=== PATIENT | female | born 1960 | race Caucasian/White ===

== ENCOUNTER → 2016-04-23 | Outpatient (CLI) | payer OTHER ==
[~2016-04-23] MED LIST: ALDACTONE100 MG PO; ASPIRIN81 M2 PO; CELEXA10 MG PO; CELEXA20 MG PO; CLEOCIN300 MG PO; DIAZEPAM5 MG PO; ENDOCET 5-3251 EACH; FLOVENT 11120 INHALA IH; FLOVENT DISKUS1 DISK IH; HYDROCHLOROTH12.5 M3 PO; KEFLEX250 MG PO; KEFLEX500 MG PO; LACTINEX PACKE1 EACH PO; LANTUS 3 M100 UNITS1 SC; LASIX40 MG PO; LISINOPRIL10 MG PO; LISINOPRIL5 MG PO; LORAZEPAM1 MG PO; METFORMIN HCL500 MG PO; NEXIUM20 MG PO; NITROSTAT0.4 MG SL; NO HOME MEDS; PERCOCET 5/31 TABLET PO; PLAVIX75 MG PO; RANITIDINE HCL75 MG PO; SPIRONOLACTONE100 MG PO; ULTRAM50 MG PO; VALIUM5 MG; VENTOLIN HFA18 GM IH; XANAX1 MG PO
== END | disposition home or self-care (01) ==
LOC: RAD 12:57 → EDSTATUS 13:15
PROC: 0W9G3ZZ Drainage of Peritoneal Cavity, Percutaneous Approach (ICD-10-PCS; principal; 2016-04-23)
DX: R18.8 Other ascites (principal)
CPT/HCPCS: P9047

== ENCOUNTER → 2016-04-26 | Outpatient (CLI) | payer OTHER | END | disposition home or self-care (01) | LOC: RAD 04-24 08:15 → EDSTATUS 08:15 → RAD 08:15 | PROC: 0W9G3ZZ Drainage of Peritoneal Cavity, Percutaneous Approach (ICD-10-PCS; principal; 2016-04-26) | DX: R18.8 Other ascites (principal) | CPT/HCPCS: P9047 ==

== ENCOUNTER → 2016-05-01 | Outpatient (CLI) | payer OTHER | END | disposition home or self-care (01) | LOC: EDSTATUS 04-29 13:15 → RAD 04-29 13:15 | PROC: 0W9G3ZZ Drainage of Peritoneal Cavity, Percutaneous Approach (ICD-10-PCS; principal; 2016-05-01) | DX: R18.8 Other ascites (principal) | CPT/HCPCS: P9047 ==

== ENCOUNTER → 2016-05-06 | Outpatient (CLI) | payer OTHER | END | disposition home or self-care (01) | LOC: RAD 12:55 → EDSTATUS 13:15 → RAD 13:15 | PROC: 0W9G3ZZ Drainage of Peritoneal Cavity, Percutaneous Approach (ICD-10-PCS; principal; 2016-05-06) | DX: R18.8 Other ascites (principal) | CPT/HCPCS: P9047 ==

== ENCOUNTER → 2016-05-13 | Outpatient (CLI) | payer OTHER ==
[~2016-05-13] MED LIST changes: +CYMBALTA60 MG PO; +ENDOCET 10-3251 EACH PO; +RETIN-A45 G1 TP
== END | disposition home or self-care (01) ==
LOC: U 12:32 → RAD 12:32 → EDSTATUS 13:15 → RAD 13:15
DX: Z53.8 Procedure and treatment not carried out for other reasons (principal)

== ENCOUNTER → 2016-05-15 | Outpatient (CLI) | payer OTHER ==
[~2016-05-15] MED LIST changes: -CYMBALTA60 MG PO; -ENDOCET 10-3251 EACH PO; -RETIN-A45 G1 TP
== END | disposition home or self-care (01) ==
LOC: EDSTATUS 05-09 08:15 → RAD 05-09 08:15
PROC: 0W9G3ZZ Drainage of Peritoneal Cavity, Percutaneous Approach (ICD-10-PCS; principal; 2016-05-15)
DX: R18.8 Other ascites (principal)
CPT/HCPCS: P9047

== ENCOUNTER → 2016-05-17 | Outpatient (CLI) | payer OTHER | END | disposition home or self-care (01) | LOC: RAD 08:18 | PROC: 0W9G3ZZ Drainage of Peritoneal Cavity, Percutaneous Approach (ICD-10-PCS; principal; 2016-05-17) | DX: R18.8 Other ascites (principal) | CPT/HCPCS: P9047 ==

== ENCOUNTER → 2016-05-20 | Outpatient (CLI) | payer OTHER | END | disposition home or self-care (01) | LOC: RAD 05-15 13:15 → EDSTATUS 05-21 13:15 | PROC: 0W9G3ZZ Drainage of Peritoneal Cavity, Percutaneous Approach (ICD-10-PCS; principal; 2016-05-20) | DX: R18.8 Other ascites (principal) | CPT/HCPCS: P9047 ==

== ENCOUNTER → 2016-05-23 | Outpatient (CLI) | payer OTHER ==
[~2016-05-23] MED LIST changes: +CYMBALTA60 MG PO; +ENDOCET 10-3251 EACH PO; +RETIN-A45 G1 TP
== END | disposition home or self-care (01) ==
LOC: RAD 08:26 → EDSTATUS 08:30 → RAD 08:30
PROC: 0W9G3ZZ Drainage of Peritoneal Cavity, Percutaneous Approach (ICD-10-PCS; principal; 2016-05-23)
DX: R18.8 Other ascites (principal)
CPT/HCPCS: P9047

== ENCOUNTER 2016-05-25 15:37 | Inpatient (IN) | payer OTHER ==
[~2016-05-25] VITALS: Ht 160 cm; Wt 97.8 kg
[~2016-05-25 15:37] MED LIST changes: -CYMBALTA60 MG PO; -ENDOCET 10-3251 EACH PO; -RETIN-A45 G1 TP
[2016-05-25 16:27] LABS: BASOPHIL COUNT 0.1 K/uL (0-0.1); EOSINOPHIL (%) 1.9 % (0-5); EOSINOPHIL COUNT 0.2 K/uL (0-0.3); HEMATOCRIT 34.9 % (36.0-46.0); IMMATURE GRANULOCYTE (%) 0.3 % (0.0-0.7); IMMATURE GRANULOCYTE COUNT 0.3 K/uL; LYMPHOCYTE COUNT 0.7 K/uL (1.0-2.8); MCH 33.6 PG (29.0-34.0); MCHC 36.1 G/DL (30.0-36.0); MCV 93.1 FL (83-99); MEAN PLAT.VOLUME 10.9 uM^3 (9.5-12.4); MONOCYTE (%) 12.7 % (3-12); MONOCYTE COUNT 1.3 K/uL (0-0.8); NEUTROPHIL COUNT 8.1 K/uL (1.8-6.4); PLATELET COUNT 98 K/uL (156-360); RBC DIS.WIDTH-CV 12.8 % (11.8-14.6); RBC DIS.WIDTH-SD 41.8 % (39-53); RED BLOOD COUNT 3.75 M/uL (3.80-5.20); WHITE BLOOD COUNT 10.4 K/uL (4.1-10.2)
[2016-05-25 16:36] LABS: CHLORIDE 92 mEq/L (99-109); POTASSIUM 5.2 mEq/L (3.7-5.4)
[2016-05-25 16:38] LABS: GLUCOSE 301 mg/dL (70-99)
[2016-05-25 16:39] LABS: ANION GAP 5 MEQ/L (2-14)
[2016-05-25 16:41] LABS: ALKALINE PHOSPHATASE 153 IU/L (3-129)
[2016-05-25 16:42] LABS: GFR ESTIMATE (CALCULATED) > 59 mL/min/
[2016-05-25 16:43] LABS: UREA NITROGEN (BUN) 20 mg/dL (9-23)
[2016-05-25 16:45] LABS: LIPASE 65 U/L (1.0-51.0)
[2016-05-25 16:55] LABS: SODIUM 115 mEq/L (136-147)
[2016-05-25] MEDS ORDERED: ENDOCET 10-3251 EACH PO (19:06)
[2016-05-25] MEDS ORDERED: CYMBALTA60 MG PO (19:07)
[2016-05-25] MEDS ORDERED: RETIN-A45 G1 TP (19:08)
[2016-05-25 19:43] LABS: ADD MIUA? YES; BILIRUBIN SMALL; BLOOD NEGATIVE; COLOR AMBER ((YELLOW)); GLUCOSE (STRIP) 250; KETONES TRACE; LEUKOCYTES SMALL; NITRITE NEGATIVE; PROTEIN (STRIP) TRACE; SPECIFIC GRAVITY 1.019 (1.000-1.030)
[2016-05-25 20:07] LABS: EPITHELIAL CELLS 1+ /HPF; RED BLOOD CELLS RARE /HPF (0-5); WHITE BLOOD CELLS 0-5 /HPF (0-5)
[2016-05-25 20:08] LABS: BACTERIA 2+ /HPF; CASTS PRESENT /LPF; CRYSTALS NONE SEEN; MUCUS 2+ /LPF; UCUL ADDED? NO
[2016-05-25 21:55] VITALS: BP 93/55
[2016-05-26] VITALS (8 sets, daily range): BP systolic 90–116; BP diastolic 48–68
[2016-05-26 06:23] LABS: HEMATOCRIT 31.6 % (36.0-46.0); MCH 33.8 PG (29.0-34.0); MCHC 36.4 G/DL (30.0-36.0); MCV 92.9 FL (83-99); PLATELET COUNT 103 K/uL (156-360); RBC DIS.WIDTH-CV 12.9 % (11.8-14.6); RBC DIS.WIDTH-SD 43.8 % (39-53); WHITE BLOOD COUNT 9.6 K/uL (4.1-10.2)
[2016-05-26 06:54] LABS: ANION GAP 3 MEQ/L (2-14); CHLORIDE 99 MEQ/L (99-109); GFR ESTIMATE (CALCULATED) > 59 mL/min/; POTASSIUM 5.2 MEQ/L (3.7-5.4); SAMPLE HEMOLYSIS CHECK 0; SAMPLE ICTERIC CHECK 0; SAMPLE LIPEMIA CHECK 0; SODIUM 120 MEQ/L (136-147); UREA NITROGEN (BUN) 16 mg/dL (9-23)
[2016-05-26 06:56] LABS: GLUCOSE 136 mg/dL (70-99)
[2016-05-26 14:11] LABS: ANION GAP 6 MEQ/L (2-14); CHLORIDE 96 MEQ/L (99-109); GFR ESTIMATE (CALCULATED) > 59 mL/min/; GLUCOSE 185 mg/dL (70-99); POTASSIUM 4.6 MEQ/L (3.7-5.4); SAMPLE HEMOLYSIS CHECK 0; SAMPLE ICTERIC CHECK 0; SAMPLE LIPEMIA CHECK 0; SODIUM 121 MEQ/L (136-147); UREA NITROGEN (BUN) 14 mg/dL (9-23)
[2016-05-27 00:54] LABS: C DIFF TOXIN NEGATIVE (NEGATIVE)
[2016-05-27 00:56] LABS: PROBE CHECK PASS; SPECIMEN PROCESSING CONTROL PASS
[2016-05-27 04:10] VITALS: BP 93/59
[2016-05-27 07:35] VITALS: BP 90/51
[2016-05-27 07:57] LABS: ABSOLUTE RETICULOCYTE CT. 0.07 M/uL (0.02-0.08); HEMATOCRIT 33.2 % (36.0-46.0); IMM.RETIC FRACTION 2.5 % (3-19); MCHC 35.8 G/DL (30.0-36.0); MCV 94.9 FL (83-99); MEAN PLAT.VOLUME 10.9 uM^3 (9.5-12.4); PLATELET COUNT 113 K/uL (156-360); RBC DIS.WIDTH-CV 13.2 % (11.8-14.6); RBC DIS.WIDTH-SD 45.8 % (39-53); RETICULOCYTE COUNT 1.9 % (0.5-1.8); WHITE BLOOD COUNT 9.5 K/uL (4.1-10.2)
[2016-05-27 08:37] LABS: ANION GAP 5 MEQ/L (2-14); CHLORIDE 99 MEQ/L (99-109); GFR ESTIMATE (CALCULATED) > 59 mL/min/; GLUCOSE 139 mg/dL (70-99); IRON 95 MCG/DL (35-150); POTASSIUM 5.1 MEQ/L (3.7-5.4); SAMPLE HEMOLYSIS CHECK 0; SAMPLE ICTERIC CHECK 0; SAMPLE LIPEMIA CHECK 0; SODIUM 122 MEQ/L (136-147); UREA NITROGEN (BUN) 13 mg/dL (9-23)
[2016-05-27 08:50] LABS: FERRITIN 233 NG/ML (10-291)
[2016-05-27 14:52] LABS: TYPE OF FLUID PARACENTESIS
[2016-05-27 15:32] VITALS: BP 113/49
[2016-05-27 15:33] LABS: RED CELL DILUTION 1
[2016-05-27 15:34] LABS: BODY FLUID WBC'S 106 /MM^3 (0-500); WBC AREA COUNTED 18; WBC DILUTION 1; WHITE CELL RAW COUNT 190
[2016-05-27 15:38] LABS: BODY FLUID EOSINOPHILS 0 % (0-25); MONO RAW COUNT 23; MONONUCLEAR WBC'S 23 %; POLY RAW COUNT 77; POLYNUCLEAR WBC'S 77 % (0-25)
[2016-05-27 16:22] LABS: BODY FLUID LDH < 25 IU/L; BODY FLUID PROTEIN < 3.0 G/DL
[2016-05-27 16:31] VITALS: BP 94/50
[2016-05-28 17:18] LABS: BODY FLUID RBC'S 139 /MM^3 (0-100); RED CELL AREA COUNTED 18
[2016-05-29 02:27] LABS: BODY FLUID PH 8.1 (())
[2016-05-29 11:38] LABS: HCV RNA (LOG IU/mL) 6.02 (<1.18)
== END 2016-05-27 18:39 | disposition left against medical advice (07) | DRG 433 ==
LOC: EME 15:37 → EDOF 20:03 → 5SOUTH 20:03
PROVIDERS: Emergency Medicine; Family Medicine; Hospitalist; Nurse Practitioner Adult Health; Specialist
PROC: 0W9G3ZX Drainage of Peritoneal Cavity, Percutaneous Approach, Diagnostic (ICD-10-PCS; principal; 2016-05-27)
DX: K74.60 Unspecified cirrhosis of liver (principal); E87.1 Hypo-osmolality and hyponatremia; E87.2 Acidosis; R18.8 Other ascites; D61.9 Aplastic anemia, unspecified; I10 Essential (primary) hypertension; I25.10 Atherosclerotic heart disease of native coronary artery without angina pectoris; B19.20 Unspecified viral hepatitis C without hepatic coma; D69.6 Thrombocytopenia, unspecified; R19.7 Diarrhea, unspecified; F41.9 Anxiety disorder, unspecified; F32.9 Major depressive disorder, single episode, unspecified; E11.9 Type 2 diabetes mellitus without complications; Z87.891 Personal history of nicotine dependence; Z88.8 Allergy status to other drugs, medicaments and biological substances; E86.1 Hypovolemia; Z85.05 Personal history of malignant neoplasm of liver; Z91.013 Allergy to seafood; R53.1 Weakness; R10.9 Unspecified abdominal pain; E66.01 Morbid (severe) obesity due to excess calories; N39.0 Urinary tract infection, site not specified
CPT/HCPCS: 71010; 74176; 80048; 80048 91; 80053; 81003; 82607; 82728; 82746; 82945; 82948; 83540; 83605; 83615 91; 83690; 83986 90; 84157; 84466; 85025; 85027; 85045; 87045; 87046; 87070; 87075; 87086; 87177; 87205; 87493; 87506; 87522 90; 88108; 89051; 94640; 94640 76; 99202; 99281; 99284; J0744; J1815; J7030

== ENCOUNTER → 2016-05-30 | Outpatient (CLI) | payer OTHER ==
[~2016-05-30] MED LIST changes: +CYMBALTA60 MG PO; +ENDOCET 10-3251 EACH PO; +RETIN-A45 G1 TP
== END | disposition home or self-care (01) ==
LOC: RAD 13:01 → EDSTATUS 13:15
PROC: 0W9G3ZZ Drainage of Peritoneal Cavity, Percutaneous Approach (ICD-10-PCS; principal; 2016-05-30)
PROC: BW40ZZZ Ultrasonography of Abdomen (ICD-10-PCS; principal; 2016-05-30)
DX: R18.8 Other ascites (principal)
CPT/HCPCS: P9047

== ENCOUNTER → 2016-06-05 | Outpatient (CLI) | payer OTHER | END | disposition home or self-care (01) | LOC: RAD 06-03 13:15 → EDSTATUS 06-03 13:15 → RAD 12:47 | PROC: 0W9G3ZZ Drainage of Peritoneal Cavity, Percutaneous Approach (ICD-10-PCS; principal; 2016-06-05) | DX: R18.8 Other ascites (principal) | CPT/HCPCS: P9047 ==

== ENCOUNTER → 2016-06-17 | Outpatient (CLI) | payer OTHER | END | disposition home or self-care (01) | LOC: RAD 13:25 | PROC: 0D9W3ZZ Drainage of Peritoneum, Percutaneous Approach (ICD-10-PCS; principal; 2016-06-17) | DX: R18.8 Other ascites (principal) | CPT/HCPCS: P9047 ==

== ENCOUNTER → 2016-06-19 | Outpatient (CLI) | payer OTHER | END | disposition home or self-care (01) | LOC: RAD 08:02 | PROC: 0W9G3ZZ Drainage of Peritoneal Cavity, Percutaneous Approach (ICD-10-PCS; principal; 2016-06-19) | DX: R18.8 Other ascites (principal) | CPT/HCPCS: P9047 ==

== ENCOUNTER → 2016-06-25 | Outpatient (CLI) | payer OTHER | END | disposition home or self-care (01) | LOC: RAD 12:40 | PROC: 0W9G3ZZ Drainage of Peritoneal Cavity, Percutaneous Approach (ICD-10-PCS; principal; 2016-06-25) | DX: R18.8 Other ascites (principal) | CPT/HCPCS: P9047 ==

== ENCOUNTER → 2016-06-27 | Outpatient (CLI) | payer OTHER | END | disposition home or self-care (01) | LOC: RAD 08:06 | PROC: 0W9G3ZZ Drainage of Peritoneal Cavity, Percutaneous Approach (ICD-10-PCS; principal; 2016-06-27) | DX: R18.8 Other ascites (principal) | CPT/HCPCS: P9047 ==

== ENCOUNTER → 2016-07-01 | Outpatient (CLI) | payer OTHER | END | disposition home or self-care (01) | LOC: RAD 06-06 08:30 → EDSTATUS 06-06 08:30 → RAD 13:12 | PROC: 0W9G3ZZ Drainage of Peritoneal Cavity, Percutaneous Approach (ICD-10-PCS; principal; 2016-07-01) | DX: R18.8 Other ascites (principal) | CPT/HCPCS: P9047 ==

== ENCOUNTER → 2016-07-03 | Outpatient (CLI) | payer OTHER | END | disposition home or self-care (01) | LOC: RAD 06-10 13:15 → EDSTATUS 06-10 13:15 → RAD 13:14 | PROC: 0W9G3ZZ Drainage of Peritoneal Cavity, Percutaneous Approach (ICD-10-PCS; principal; 2016-07-03) | DX: R18.8 Other ascites (principal) | CPT/HCPCS: P9047 ==

== ENCOUNTER → 2016-07-08 | Outpatient (CLI) | payer OTHER | END | disposition home or self-care (01) | LOC: EDSTATUS 06-13 13:15 → RAD 06-13 13:15 | PROC: 0W9G3ZZ Drainage of Peritoneal Cavity, Percutaneous Approach (ICD-10-PCS; principal; 2016-07-08) | DX: R18.8 Other ascites (principal) | CPT/HCPCS: P9047 ==

== ENCOUNTER → 2016-07-11 | Outpatient (CLI) | payer OTHER | END | disposition home or self-care (01) | LOC: RAD 05-27 13:15 → EDSTATUS 05-27 13:15 → RAD 07:58 | PROC: 0W9G3ZZ Drainage of Peritoneal Cavity, Percutaneous Approach (ICD-10-PCS; principal; 2016-07-11) | DX: R18.8 Other ascites (principal) | CPT/HCPCS: P9047 ==

== ENCOUNTER → 2016-07-16 | Outpatient (CLI) | payer OTHER | END | disposition home or self-care (01) | LOC: RAD 13:06 | PROC: 0W9G3ZZ Drainage of Peritoneal Cavity, Percutaneous Approach (ICD-10-PCS; principal; 2016-07-16) | DX: K74.69 Other cirrhosis of liver (principal) | CPT/HCPCS: P9047 ==

== ENCOUNTER → 2016-07-19 | Outpatient (CLI) | payer OTHER | END | disposition home or self-care (01) | LOC: RAD 08:25 | PROC: 0W9G3ZZ Drainage of Peritoneal Cavity, Percutaneous Approach (ICD-10-PCS; principal; 2016-07-19) | DX: K74.69 Other cirrhosis of liver (principal) | CPT/HCPCS: P9047 ==

== ENCOUNTER → 2016-07-22 | Outpatient (CLI) | payer OTHER | END | disposition home or self-care (01) | LOC: RAD 13:05 | PROC: 0W9G3ZZ Drainage of Peritoneal Cavity, Percutaneous Approach (ICD-10-PCS; principal; 2016-07-22) | DX: K74.69 Other cirrhosis of liver (principal) | CPT/HCPCS: P9047 ==

== ENCOUNTER → 2016-07-26 | Outpatient (CLI) | payer OTHER | END | disposition home or self-care (01) | LOC: RAD 08:15 | PROC: 0W9G3ZZ Drainage of Peritoneal Cavity, Percutaneous Approach (ICD-10-PCS; principal; 2016-07-26) | DX: K74.69 Other cirrhosis of liver (principal) | CPT/HCPCS: P9047 ==

== ENCOUNTER → 2016-07-29 | Outpatient (CLI) | payer OTHER | END | disposition home or self-care (01) | LOC: RAD 13:05 | PROC: 0W9G3ZZ Drainage of Peritoneal Cavity, Percutaneous Approach (ICD-10-PCS; principal; 2016-07-29) | DX: K74.69 Other cirrhosis of liver (principal) | CPT/HCPCS: P9047 ==

== ENCOUNTER 2016-08-01 21:42 | Inpatient (IN) | payer OTHER ==
[~2016-08-01] VITALS: Ht 160 cm; Wt 85.0 kg
[2016-08-01 23:31] LABS: EOSINOPHIL (%) 4.2 % (0-5); EOSINOPHIL COUNT 0.2 K/uL (0-0.3); HEMATOCRIT 27.9 % (36.0-46.0); IMMATURE GRANULOCYTE (%) 1.1 % (0.0-0.7); IMMATURE GRANULOCYTE COUNT 0.1 K/uL; LYMPHOCYTE COUNT 0.5 K/uL (1.0-2.8); MCH 33.2 PG (29.0-34.0); MCHC 35.8 G/DL (30.0-36.0); MCV 92.7 FL (83-99); MEAN PLAT.VOLUME 11.7 uM^3 (9.5-12.4); MONOCYTE (%) 14.3 % (3-12); MONOCYTE COUNT 0.8 K/uL (0-0.8); NEUTROPHIL (%) 71.2 % (45-76); PLATELET COUNT 71 K/uL (156-360); RBC DIS.WIDTH-CV 15.5 % (11.8-14.6); RBC DIS.WIDTH-SD 52.4 % (39-53); RED BLOOD COUNT 3.01 M/uL (3.80-5.20); WHITE BLOOD COUNT 5.7 K/uL (4.1-10.2)
[2016-08-01 23:42] LABS: CHLORIDE 104 mEq/L (99-109); INTER. NORMALIZED RATIO 1.3; POTASSIUM 4.3 mEq/L (3.7-5.4); PROTHROMBIN TIME 13.6 (9.2-11.2); PTT 29.6 (25-32); SODIUM 129 mEq/L (136-147)
[2016-08-01 23:45] LABS: GLUCOSE 264 mg/dL (70-99)
[2016-08-01 23:46] LABS: ANION GAP 7 MEQ/L (2-14)
[2016-08-01 23:47] LABS: TOTAL BILIRUBIN 2.7 mg/dL (0.0-1.0)
[2016-08-01 23:48] LABS: ALKALINE PHOSPHATASE 97 IU/L (3-129); GFR ESTIMATE (CALCULATED) 55 mL/min/
[2016-08-01 23:49] LABS: UREA NITROGEN (BUN) 21 mg/dL (9-23)
[2016-08-02 00:55] LABS: ADD MIUA? YES; BILIRUBIN NEGATIVE; BLOOD NEGATIVE; COLOR YELLOW ((YELLOW)); GLUCOSE (STRIP) >=500; KETONES NEGATIVE; LEUKOCYTES NEGATIVE; NITRITE NEGATIVE; PROTEIN (STRIP) NEGATIVE
[2016-08-02 00:59] LABS: BACTERIA RARE /HPF; EPITHELIAL CELLS 1+ /HPF; HYALINE CASTS 0-5 /LPF; MUCUS NONE SEEN /LPF; RED BLOOD CELLS 0-5 /HPF (0-5); UCUL ADDED? NO; WHITE BLOOD CELLS 0-5 /HPF (0-5)
[2016-08-02 01:07] LABS: ADD MEDTOX COMMENT Y; AMPHETAMINE NEGATIVE (500 ng/mL); BARBITURATES NEGATIVE (200 ng/mL); BENZODIAZEPINES PRESUMPTIVE POSITIVE (150 ng/mL); COCAINE NEGATIVE (150 ng/mL); INTERNAL CONTROLS VALID? YES; METHADONE NEGATIVE (200 ng/mL); METHAMPHETAMINE NEGATIVE (500 ng/mL); OPIATES (MORPHINE) NEGATIVE (100 ng/mL); OXYCODONE NEGATIVE (100 ng/mL); PHENCYCLIDINE NEGATIVE (25 ng/mL); PROPOXYPHENE NEGATIVE (300 ng/mL); THC CANNABINOIDS NEGATIVE (50 ng/mL); TRICYCLIC ANTIDEPRESSANTS NEGATIVE (300 ng/mL)
[2016-08-02 04:10] LABS: BENZODIAZEPINES, URINE SCREEN POSITIVE (200 ng/mL)
[2016-08-02 06:26] LABS: HEMATOCRIT 26.6 % (36.0-46.0); MCH 32.9 PG (29.0-34.0); MCHC 35.3 G/DL (30.0-36.0); MEAN PLAT.VOLUME 11.8 uM^3 (9.5-12.4); PLATELET COUNT 67 K/uL (156-360); RBC DIS.WIDTH-CV 15.5 % (11.8-14.6); RBC DIS.WIDTH-SD 53.3 % (39-53); RED BLOOD COUNT 2.86 M/uL (3.80-5.20); WHITE BLOOD COUNT 5.3 K/uL (4.1-10.2)
[2016-08-02 06:41] LABS: CHLORIDE 108 mEq/L (99-109); SODIUM 131 mEq/L (136-147)
[2016-08-02 06:43] LABS: GLUCOSE 279 mg/dL (70-99)
[2016-08-02 06:44] LABS: ANION GAP 6 MEQ/L (2-14)
[2016-08-02 06:47] LABS: GFR ESTIMATE (CALCULATED) > 59 mL/min/
[2016-08-02 06:48] LABS: UREA NITROGEN (BUN) 20 mg/dL (9-23)
[2016-08-02 07:30] VITALS: BP 107/70
[2016-08-02 09:50] VITALS: BP 100/58
[2016-08-02 11:04] LABS: TYPE OF FLUID PARACENTESIS
[2016-08-02] MEDS ORDERED: ALPRAZOLAM1 MG PO (11:40)
[2016-08-02] MEDS ORDERED: LACTULOSE10 GM/151 PO (11:41)
[2016-08-02] MEDS ORDERED: CLOPIDOGREL75 MG PO (11:44)
[2016-08-02] MEDS ORDERED: SPIRONOLACTONE50 MG PO (11:46)
[2016-08-02 11:57] LABS: BODY FLUID EOSINOPHILS 0 % (0-25); BODY FLUID RBC'S < 1000 /MM^3 (0-100); BODY FLUID WBC'S 74 /MM^3 (0-500); COMMENT FEW MESOTHELIAL CELL; MONONUCLEAR WBC'S 65 %; POLYNUCLEAR WBC'S 35 % (0-25)
[2016-08-02] MEDS ORDERED: FLOVENT DISKUS1 DISK IH (12:41)
[2016-08-02] MEDS ORDERED: VENTOLIN HFA18 GM IH (12:42)
[2016-08-02] MEDS ORDERED: DULOXETINE HCL60 MG PO (12:43)
[2016-08-02] MEDS ORDERED: LANTUS 3 M100 UNITS1 SC (12:45)
[2016-08-02 16:00] VITALS: BP 102/55
[2016-08-02 20:17] VITALS: BP 97/54
[2016-08-02 21:28] LABS: POINT-OF-CARE METER ID UU14162508
[2016-08-02 23:44] VITALS: BP 124/67
[2016-08-03 06:23] LABS: POINT-OF-CARE METER ID UU14162508
[2016-08-03 06:47] LABS: HEMATOCRIT 25.4 % (36.0-46.0); MCH 33.8 PG (29.0-34.0); MCHC 35.8 G/DL (30.0-36.0); MCV 94.4 FL (83-99); MEAN PLAT.VOLUME 11.4 uM^3 (9.5-12.4); PLATELET COUNT 67 K/uL (156-360); RBC DIS.WIDTH-CV 15.6 % (11.8-14.6); RED BLOOD COUNT 2.69 M/uL (3.80-5.20); WHITE BLOOD COUNT 5.5 K/uL (4.1-10.2)
[2016-08-03 07:12] LABS: ALKALINE PHOSPHATASE 82 IU/L (3-129); ANION GAP 7 MEQ/L (2-14); CHLORIDE 104 MEQ/L (99-109); GFR ESTIMATE (CALCULATED) > 59 mL/min/; GLUCOSE 211 mg/dL (70-99); POTASSIUM 3.6 MEQ/L (3.7-5.4); SAMPLE HEMOLYSIS CHECK 0; SAMPLE ICTERIC CHECK 1; SAMPLE LIPEMIA CHECK 0; SODIUM 130 MEQ/L (136-147); TOTAL BILIRUBIN 3.5 MG/DL (0.0-1.0); UREA NITROGEN (BUN) 20 mg/dL (9-23)
[2016-08-03 08:00] VITALS: BP 119/57
[2016-08-03] MEDS ORDERED: ALDACTONE100 MG PO (10:14)
[2016-08-03] MEDS ORDERED: FUROSEMIDE40 MG PO (10:15)
[2016-08-03] MEDS ORDERED: Chronulac,Cephulac,E PO (10:17)
[2016-08-05 12:18] LABS: POINT-OF-CARE METER ID UU14100415
[2016-08-05 12:19] LABS: POINT-OF-CARE METER ID UU14100415
== END 2016-08-03 11:55 | disposition home or self-care (01) | DRG 442 ==
LOC: EME → EDBD 21:42 → EME 21:42 → 2EAST 08-02 03:00 → EDOF 08-02 03:00 → 2EAST 08-02 07:20
PROVIDERS: Emergency Medicine; Hospitalist; Internal Medicine; Nurse Practitioner Adult Health
PROC: 0W9G30Z Drainage of Peritoneal Cavity with Drainage Device, Percutaneous Approach (ICD-10-PCS; principal; 2016-08-02)
DX: K72.90 Hepatic failure, unspecified without coma (principal); R18.8 Other ascites; E87.1 Hypo-osmolality and hyponatremia; C22.1 Intrahepatic bile duct carcinoma; Z76.82 Awaiting organ transplant status; D64.9 Anemia, unspecified; B18.2 Chronic viral hepatitis C; K74.60 Unspecified cirrhosis of liver; E11.9 Type 2 diabetes mellitus without complications; I10 Essential (primary) hypertension; E78.5 Hyperlipidemia, unspecified; D75.1 Secondary polycythemia; I25.10 Atherosclerotic heart disease of native coronary artery without angina pectoris; E66.9 Obesity, unspecified; F17.210 Nicotine dependence, cigarettes, uncomplicated; Z91.14 Patient's other noncompliance with medication regimen; Z68.33 Body mass index [BMI] 33.0-33.9, adult; Z95.5 Presence of coronary angioplasty implant and graft; Z79.02 Long term (current) use of antithrombotics/antiplatelets; Z88.6 Allergy status to analgesic agent; Z88.5 Allergy status to narcotic agent
CPT/HCPCS: 36415; 70450; 71020; 80048; 80053; 81003; 82105 90; 82140; 82948; 83605; 84999; 85025; 85027; 85610; 85730; 87040; 87070; 87205; 89051; 93005; 94640; 94640 76; 99281; 99285; J0696; J1815; J7050; P9047

== ENCOUNTER → 2016-08-05 | Outpatient (CLI) | payer OTHER ==
[~2016-08-05] MED LIST changes: +ALPRAZOLAM1 MG PO; +CLOPIDOGREL75 MG PO; +CONSTULOSE10 GM/15 M PO; +Chronulac,Cephulac,E PO; +DULOXETINE HCL60 MG PO; +FUROSEMIDE40 MG PO; +LACTULOSE10 GM/151 PO; +SPIRONOLACTONE50 MG PO
== END | disposition home or self-care (01) ==
LOC: RAD 13:15
PROC: 0W9G3ZZ Drainage of Peritoneal Cavity, Percutaneous Approach (ICD-10-PCS; principal; 2016-08-05)
DX: K74.69 Other cirrhosis of liver (principal)
CPT/HCPCS: P9047

== ENCOUNTER → 2016-08-09 | Outpatient (CLI) | payer OTHER | END | disposition home or self-care (01) | LOC: RAD 08:12 | PROC: 0W9G3ZZ Drainage of Peritoneal Cavity, Percutaneous Approach (ICD-10-PCS; principal; 2016-08-09) | DX: K74.69 Other cirrhosis of liver (principal) | CPT/HCPCS: P9047 ==

== ENCOUNTER → 2016-08-12 | Outpatient (CLI) | payer OTHER | END | disposition home or self-care (01) | LOC: RAD 13:07 | PROC: 0W9G3ZZ Drainage of Peritoneal Cavity, Percutaneous Approach (ICD-10-PCS; principal; 2016-08-12) | DX: K74.69 Other cirrhosis of liver (principal) | CPT/HCPCS: P9047 ==

== ENCOUNTER → 2016-08-16 | Outpatient (CLI) | payer OTHER | END | disposition home or self-care (01) | LOC: RAD 08:15 | PROC: 0W9G3ZZ Drainage of Peritoneal Cavity, Percutaneous Approach (ICD-10-PCS; principal; 2016-08-16) | DX: K74.69 Other cirrhosis of liver (principal) | CPT/HCPCS: P9047 ==

== ENCOUNTER → 2016-08-19 | Outpatient (CLI) | payer OTHER | END | disposition home or self-care (01) | LOC: RAD 13:02 | PROC: 0W9G3ZZ Drainage of Peritoneal Cavity, Percutaneous Approach (ICD-10-PCS; principal; 2016-08-19) | DX: K74.69 Other cirrhosis of liver (principal) | CPT/HCPCS: P9047 ==

== ENCOUNTER → 2016-08-22 | Outpatient (CLI) | payer OTHER | END | disposition home or self-care (01) | LOC: RAD 08:15 | PROC: 0W9G3ZZ Drainage of Peritoneal Cavity, Percutaneous Approach (ICD-10-PCS; principal; 2016-08-22) | DX: K74.69 Other cirrhosis of liver (principal) | CPT/HCPCS: P9047 ==

== ENCOUNTER → 2016-08-23 | Outpatient (CLI) | payer OTHER | END | disposition home or self-care (01) | LOC: NUC 08-22 10:00 | DX: S22.41XD Multiple fractures of ribs, right side, subsequent encounter for fracture with routine healing (principal); R93.0 Abnormal findings on diagnostic imaging of skull and head, not elsewhere classified; C22.1 Intrahepatic bile duct carcinoma | CPT/HCPCS: 78306; A9503 ==

== ENCOUNTER → 2016-08-26 | Outpatient (CLI) | payer OTHER | END | disposition home or self-care (01) | LOC: RAD 13:18 | PROC: 0W9G3ZZ Drainage of Peritoneal Cavity, Percutaneous Approach (ICD-10-PCS; principal; 2016-08-26) | DX: K74.69 Other cirrhosis of liver (principal) | CPT/HCPCS: P9047 ==

== ENCOUNTER → 2016-08-29 | Outpatient (CLI) | payer OTHER | END | disposition home or self-care (01) | LOC: RAD 08:30 | PROC: 0W9G3ZZ Drainage of Peritoneal Cavity, Percutaneous Approach (ICD-10-PCS; principal; 2016-08-29) | DX: K74.69 Other cirrhosis of liver (principal) | CPT/HCPCS: P9047 ==

== ENCOUNTER → 2016-09-02 | Outpatient (CLI) | payer OTHER ==
[2016-09-02 14:50] LABS: TYPE OF FLUID PARACENTESIS
[2016-09-02 15:29] LABS: BODY FLUID EOSINOPHILS 0 % (0-25); BODY FLUID RBC'S < 1000 /MM^3 (0-100); BODY FLUID WBC'S 72 /MM^3 (0-500); MONONUCLEAR WBC'S 45 %; POLYNUCLEAR WBC'S 55 % (0-25)
== END | disposition home or self-care (01) ==
LOC: RAD 13:10
PROVIDERS: Radiology Diagnostic Radiology
PROC: 0W9G3ZZ Drainage of Peritoneal Cavity, Percutaneous Approach (ICD-10-PCS; principal; 2016-09-02)
DX: K74.69 Other cirrhosis of liver (principal)
CPT/HCPCS: 87070; 87075; 87205; 88108; 89051; P9047

== ENCOUNTER → 2016-09-05 | Outpatient (CLI) | payer OTHER | END | disposition home or self-care (01) | LOC: RAD 08:09 | PROC: 0W9G3ZZ Drainage of Peritoneal Cavity, Percutaneous Approach (ICD-10-PCS; principal; 2016-09-05) | DX: K74.69 Other cirrhosis of liver (principal) | CPT/HCPCS: P9047 ==

== ENCOUNTER → 2016-09-09 | Outpatient (CLI) | payer OTHER | END | disposition home or self-care (01) | LOC: RAD 13:08 | PROC: 0W9G3ZZ Drainage of Peritoneal Cavity, Percutaneous Approach (ICD-10-PCS; principal; 2016-09-09) | DX: K74.69 Other cirrhosis of liver (principal) | CPT/HCPCS: P9047 ==

== ENCOUNTER → 2016-09-12 | Outpatient (CLI) | payer OTHER | END | disposition home or self-care (01) | LOC: RAD 08:09 | PROC: 0W9G3ZZ Drainage of Peritoneal Cavity, Percutaneous Approach (ICD-10-PCS; principal; 2016-09-12) | DX: K74.69 Other cirrhosis of liver (principal) | CPT/HCPCS: P9047 ==

== ENCOUNTER 2016-09-19 15:54 | Inpatient (IN) | payer OTHER ==
[~2016-09-19] VITALS: Ht 160 cm; Wt 82.9 kg
[2016-09-19 16:39] LABS: HEMATOCRIT 29.8 % (36.0-46.0); MCH 34.3 PG (29.0-34.0); MCHC 36.6 G/DL (30.0-36.0); MCV 93.7 FL (83-99); MEAN PLAT.VOLUME 11.2 uM^3 (9.5-12.4); PLATELET COUNT 82 K/uL (156-360); RBC DIS.WIDTH-CV 13.7 % (11.8-14.6); RBC DIS.WIDTH-SD 47.3 % (39-53); RED BLOOD COUNT 3.18 M/uL (3.80-5.20); WHITE BLOOD COUNT 9.5 K/uL (4.1-10.2)
[2016-09-19 16:48] LABS: CHLORIDE 97 mEq/L (99-109); POTASSIUM 5.1 mEq/L (3.7-5.4)
[2016-09-19 16:49] LABS: INTER. NORMALIZED RATIO 1.2; PROTHROMBIN TIME 12.6 (9.2-11.2)
[2016-09-19 16:50] LABS: GLUCOSE 377 mg/dL (70-99)
[2016-09-19 16:51] LABS: ANION GAP 8 MEQ/L (2-14)
[2016-09-19 16:52] LABS: TOTAL BILIRUBIN 3.9 mg/dL (0.0-1.0)
[2016-09-19 16:53] LABS: ALKALINE PHOSPHATASE 118 IU/L (3-129)
[2016-09-19 16:54] LABS: GFR ESTIMATE (CALCULATED) 49 mL/min/
[2016-09-19 16:55] LABS: UREA NITROGEN (BUN) 29 mg/dL (9-23)
[2016-09-19 17:07] LABS: SODIUM 119 mEq/L (136-147)
[2016-09-19] MEDS ORDERED: ALDACTONE100 MG PO (18:05)
[2016-09-19] MEDS ORDERED: LASIX40 MG PO (18:08)
[2016-09-19 19:55] LABS: POINT-OF-CARE METER ID UU13113702
[2016-09-19 21:25] LABS: Estimated Average Glucose 214 mg/dL (70-123); HEMOGLOBIN A1c (GLYCOHEMOGLOB) 9.1 % HGB (Below 5.7)
[2016-09-19 21:45] VITALS: BP 116/56
[2016-09-19 23:31] VITALS: BP 117/60
[2016-09-20 00:57] LABS: POINT-OF-CARE METER ID UU13113725
[2016-09-20 04:36] VITALS: BP 115/67
[2016-09-20 07:44] VITALS: BP 110/70
[2016-09-20 08:16] LABS: HEMATOCRIT 31.1 % (36.0-46.0); MCH 33.8 PG (29.0-34.0); MCHC 35.4 G/DL (30.0-36.0); MCV 95.7 FL (83-99); MEAN PLAT.VOLUME 11.9 uM^3 (9.5-12.4); PLATELET COUNT 79 K/uL (156-360); RBC DIS.WIDTH-SD 49.5 % (39-53); RED BLOOD COUNT 3.25 M/uL (3.80-5.20); WHITE BLOOD COUNT 7.4 K/uL (4.1-10.2)
[2016-09-20 08:47] LABS: ALKALINE PHOSPHATASE 125 IU/L (3-129); ANION GAP 9 MEQ/L (2-14); CHLORIDE 96 MEQ/L (99-109); GFR ESTIMATE (CALCULATED) 55 mL/min/; GLUCOSE 224 mg/dL (70-99); POTASSIUM 4.3 MEQ/L (3.7-5.4); SAMPLE HEMOLYSIS CHECK 0; SAMPLE ICTERIC CHECK 1; SAMPLE LIPEMIA CHECK 0; SODIUM 120 MEQ/L (136-147); TOTAL BILIRUBIN 2.9 MG/DL (0.0-1.0); UREA NITROGEN (BUN) 28 mg/dL (9-23)
[2016-09-20 12:08] VITALS: BP 120/60
[2016-09-20 15:16] VITALS: BP 113/55
[2016-09-20 15:21] LABS: TYPE OF FLUID PARACENTESIS
[2016-09-20 16:38] LABS: BODY FLUID EOSINOPHILS 0 % (0-25); BODY FLUID RBC'S < 1000 /MM^3 (0-100); BODY FLUID WBC'S 53 /MM^3 (0-500); MONONUCLEAR WBC'S 55 %; POLYNUCLEAR WBC'S 45 % (0-25)
[2016-09-20 16:44] LABS: BASE EXCESS -9.9 mEq/L (-3 to +3); BICARBONATE 14.1 mEq/L (22-26); METHEMOGLOBIN 1.4 % (0-1.5); PCO2 25 mm Hg (35-45); PO2 71 mm Hg (80-100); pH 7.36 (7.35-7.45)
[2016-09-20 16:46] LABS: COMMENTS - BLOOD GASES A+C+; DEVICE ROOM AIR; FI02 21 %; O2 FLOW 0 L/MIN; SITE LR; TOTAL RESP RATE 18 resp/min
[2016-09-20 19:21] LABS: UR CREATININE CONCENTRATION 97.1 MG/DL
[2016-09-20 19:34] LABS: ANION GAP 8 MEQ/L (2-14); CHLORIDE 100 MEQ/L (99-109); GFR ESTIMATE (CALCULATED) 55 mL/min/; GLUCOSE 275 mg/dL (70-99); POTASSIUM 4.4 MEQ/L (3.7-5.4); SAMPLE HEMOLYSIS CHECK 0; SAMPLE ICTERIC CHECK 0; SAMPLE LIPEMIA CHECK 0; SODIUM 123 MEQ/L (136-147); UREA NITROGEN (BUN) 24 mg/dL (9-23)
[2016-09-20 19:41] VITALS: BP 118/56
[2016-09-20 21:22] LABS: POINT-OF-CARE METER ID UU13113725
[2016-09-20 23:24] VITALS: BP 104/72
[2016-09-21 03:12] VITALS: BP 107/53
[2016-09-21 07:01] LABS: HEMATOCRIT 29.2 % (36.0-46.0); MCH 34.7 PG (29.0-34.0); MCHC 36.6 G/DL (30.0-36.0); MCV 94.8 FL (83-99); MEAN PLAT.VOLUME 11.6 uM^3 (9.5-12.4); PLATELET COUNT 81 K/uL (156-360); RBC DIS.WIDTH-SD 48.4 % (39-53); RED BLOOD COUNT 3.08 M/uL (3.80-5.20); WHITE BLOOD COUNT 8.3 K/uL (4.1-10.2)
[2016-09-21 07:31] LABS: ANION GAP 7 MEQ/L (2-14); CHLORIDE 103 MEQ/L (99-109); POTASSIUM 3.9 MEQ/L (3.7-5.4); SAMPLE HEMOLYSIS CHECK 0; SAMPLE ICTERIC CHECK 0; SAMPLE LIPEMIA CHECK 0; SODIUM 125 MEQ/L (136-147)
[2016-09-21 07:42] LABS: GFR ESTIMATE (CALCULATED) > 59 mL/min/; GLUCOSE 97 mg/dL (70-99); UREA NITROGEN (BUN) 25 mg/dL (9-23)
[2016-09-21 12:52] VITALS: BP 110/60
[2016-09-21 18:53] VITALS: BP 111/59
[2016-09-21 19:10] VITALS: BP 108/55
[2016-09-22 01:09] VITALS: BP 99/58
[2016-09-22 03:23] VITALS: BP 100/53
[2016-09-22 07:24] VITALS: BP 99/61
[2016-09-22 08:03] LABS: ANION GAP 7 MEQ/L (2-14); CHLORIDE 102 MEQ/L (99-109); GFR ESTIMATE (CALCULATED) > 59 mL/min/; GLUCOSE 116 mg/dL (70-99); POTASSIUM 3.9 MEQ/L (3.7-5.4); SAMPLE HEMOLYSIS CHECK 0; SAMPLE ICTERIC CHECK 0; SAMPLE LIPEMIA CHECK 0; SODIUM 124 MEQ/L (136-147); UREA NITROGEN (BUN) 25 mg/dL (9-23)
[2016-09-22 11:13] VITALS: BP 95/57
[2016-09-22 11:18] LABS: POINT-OF-CARE METER ID UU13113725
[2016-09-22 15:45] VITALS: BP 102/62
[2016-09-22 19:23] VITALS: BP 100/66
[2016-09-23 00:32] VITALS: BP 100/70
[2016-09-23 08:18] LABS: HEMATOCRIT 27.4 % (36.0-46.0); MCH 34.6 PG (29.0-34.0); MCHC 36.1 G/DL (30.0-36.0); MCV 95.8 FL (83-99); MEAN PLAT.VOLUME 11.7 uM^3 (9.5-12.4); PLATELET COUNT 85 K/uL (156-360); RBC DIS.WIDTH-CV 14.2 % (11.8-14.6); RBC DIS.WIDTH-SD 50.7 % (39-53); RED BLOOD COUNT 2.86 M/uL (3.80-5.20); WHITE BLOOD COUNT 9.4 K/uL (4.1-10.2)
[2016-09-23 08:51] LABS: ANION GAP 5 MEQ/L (2-14); CHLORIDE 100 MEQ/L (99-109); GFR ESTIMATE (CALCULATED) 45 mL/min/; GLUCOSE 167 mg/dL (70-99); SAMPLE HEMOLYSIS CHECK 0; SAMPLE ICTERIC CHECK 0; SAMPLE LIPEMIA CHECK 0; SODIUM 123 MEQ/L (136-147); UREA NITROGEN (BUN) 26 mg/dL (9-23)
[2016-09-23 09:23] VITALS: BP 93/50
[2016-09-23 11:26] LABS: POINT-OF-CARE METER ID UU13113725
[2016-09-23 16:18] VITALS: BP 108/55
[2016-09-23] MEDS ORDERED: XIFAXAN550 MG PO (16:49)
[2016-09-23] MEDS ORDERED: CONSTULOSE10 GM/15 M PO (16:49)
== END 2016-09-23 17:10 | disposition left against medical advice (07) | DRG 442 ==
LOC: EME 15:54 → 5EAST 18:59 → EDOF 18:59 → 5EAST 21:00
PROVIDERS: Emergency Medicine; Hospitalist; Internal Medicine; Internal Medicine Gastroenterology; Internal Medicine Nephrology
PROC: 0W9G30Z Drainage of Peritoneal Cavity with Drainage Device, Percutaneous Approach (ICD-10-PCS; principal; 2016-09-19)
PROC: BW40ZZZ Ultrasonography of Abdomen (ICD-10-PCS; 2016-09-23)
DX: K72.90 Hepatic failure, unspecified without coma (principal); K92.1 Melena; K92.0 Hematemesis; R18.8 Other ascites; N17.9 Acute kidney failure, unspecified; E87.1 Hypo-osmolality and hyponatremia; I25.10 Atherosclerotic heart disease of native coronary artery without angina pectoris; E11.65 Type 2 diabetes mellitus with hyperglycemia; F32.9 Major depressive disorder, single episode, unspecified; E11.9 Type 2 diabetes mellitus without complications; E87.2 Acidosis; I10 Essential (primary) hypertension; F17.210 Nicotine dependence, cigarettes, uncomplicated; K74.60 Unspecified cirrhosis of liver; E86.0 Dehydration; E86.1 Hypovolemia; B19.20 Unspecified viral hepatitis C without hepatic coma; C22.1 Intrahepatic bile duct carcinoma; Z91.19 Patient's noncompliance with other medical treatment and regimen; Z79.4 Long term (current) use of insulin; Z88.8 Allergy status to other drugs, medicaments and biological substances; Z88.6 Allergy status to analgesic agent; Z91.013 Allergy to seafood
CPT/HCPCS: 36600; 71010; 80048; 80048 91; 80053; 80069; 81003; 82140; 82570; 82803; 82948; 83036; 83930; 83935; 84300; 85027; 85610; 85730; 86900; 86901; 87070; 87205; 89051; 94640; 94640 76; 99202; 99281; 99284; J1644; J1815; J7030; P9047

== ENCOUNTER → 2016-09-26 | Outpatient (CLI) | payer OTHER ==
[~2016-09-26] MED LIST changes: +ASPIR 8181 M1 PO; +XIFAXAN550 MG PO
== END | disposition home or self-care (01) ==
LOC: RAD 08:30
PROC: 0W9G3ZZ Drainage of Peritoneal Cavity, Percutaneous Approach (ICD-10-PCS; principal; 2016-09-26)
DX: K74.69 Other cirrhosis of liver (principal)
CPT/HCPCS: P9047

== ENCOUNTER → 2016-09-30 | Outpatient (CLI) | payer OTHER | END | disposition home or self-care (01) | LOC: RAD 09-23 13:30 | PROC: 0W9G3ZZ Drainage of Peritoneal Cavity, Percutaneous Approach (ICD-10-PCS; principal; 2016-09-30) | DX: K74.69 Other cirrhosis of liver (principal) | CPT/HCPCS: P9047 ==

== ENCOUNTER → 2016-10-10 | Outpatient (CLI) | payer OTHER | END | disposition home or self-care (01) | LOC: RAD 08:15 | PROC: 0W9G3ZZ Drainage of Peritoneal Cavity, Percutaneous Approach (ICD-10-PCS; principal; 2016-10-10) | DX: K74.69 Other cirrhosis of liver (principal) | CPT/HCPCS: P9047 ==

== ENCOUNTER → 2016-10-14 | Outpatient (CLI) | payer OTHER | END | disposition home or self-care (01) | LOC: RAD 10-07 13:30 | PROC: 0W9G3ZZ Drainage of Peritoneal Cavity, Percutaneous Approach (ICD-10-PCS; principal; 2016-10-14) | DX: K74.69 Other cirrhosis of liver (principal) | CPT/HCPCS: P9047 ==

== ENCOUNTER → 2016-10-17 | Outpatient (CLI) | payer OTHER | END | disposition home or self-care (01) | LOC: RAD 08:13 | PROC: 0W9G3ZZ Drainage of Peritoneal Cavity, Percutaneous Approach (ICD-10-PCS; principal; 2016-10-17) | DX: K74.69 Other cirrhosis of liver (principal) | CPT/HCPCS: P9047 ==

== ENCOUNTER → 2016-10-21 | Outpatient (CLI) | payer OTHER | END | disposition home or self-care (01) | LOC: RAD 13:15 | PROC: 0W9G3ZZ Drainage of Peritoneal Cavity, Percutaneous Approach (ICD-10-PCS; principal; 2016-10-21) | DX: K74.69 Other cirrhosis of liver (principal) | CPT/HCPCS: 49083; P9047 ==

== ENCOUNTER → 2016-10-24 | Outpatient (CLI) | payer OTHER | END | disposition home or self-care (01) | LOC: RAD 08:09 | PROC: 0W9G3ZZ Drainage of Peritoneal Cavity, Percutaneous Approach (ICD-10-PCS; principal; 2016-10-24) | DX: K74.69 Other cirrhosis of liver (principal) | CPT/HCPCS: 49083; P9047 ==

== ENCOUNTER → 2016-11-04 | Outpatient (CLI) | payer OTHER | END | disposition home or self-care (01) | LOC: RAD 13:30 | PROC: 0W9G3ZZ Drainage of Peritoneal Cavity, Percutaneous Approach (ICD-10-PCS; principal; 2016-11-04) | DX: K74.69 Other cirrhosis of liver (principal) | CPT/HCPCS: 49083; P9047 ==

== ENCOUNTER → 2016-11-08 | Outpatient (CLI) | payer OTHER | END | disposition home or self-care (01) | LOC: RAD 10-01 08:30 | PROC: 0W9G3ZZ Drainage of Peritoneal Cavity, Percutaneous Approach (ICD-10-PCS; principal; 2016-11-08) | DX: K74.69 Other cirrhosis of liver (principal) | CPT/HCPCS: 49083; P9047 ==

== ENCOUNTER → 2016-11-11 | Outpatient (CLI) | payer OTHER | END | disposition home or self-care (01) | LOC: RAD 12:54 | PROC: 0W9G3ZZ Drainage of Peritoneal Cavity, Percutaneous Approach (ICD-10-PCS; principal; 2016-11-11) | DX: K74.69 Other cirrhosis of liver (principal) | CPT/HCPCS: 49083; P9047 ==

== ENCOUNTER → 2016-11-14 | Outpatient (CLI) | payer OTHER | END | disposition home or self-care (01) | LOC: RAD 07:58 | PROC: 0WJG3ZZ Inspection of Peritoneal Cavity, Percutaneous Approach (ICD-10-PCS; principal; 2016-11-14) | DX: Z53.09 Procedure and treatment not carried out because of other contraindication (principal) | CPT/HCPCS: 76705; P9047 ==

== ENCOUNTER → 2016-11-21 | Outpatient (CLI) | payer OTHER | END | disposition home or self-care (01) | LOC: RAD 12:57 | PROC: 0W9G3ZZ Drainage of Peritoneal Cavity, Percutaneous Approach (ICD-10-PCS; principal; 2016-11-21) | DX: K74.69 Other cirrhosis of liver (principal) | CPT/HCPCS: 49083; P9047 ==

== ENCOUNTER 2016-11-25 17:53 | Inpatient (IN) | payer OTHER ==
[~2016-11-25] VITALS: Ht 160 cm; Wt 71.4 kg
[2016-11-25 19:03] LABS: HEMATOCRIT 29.7 % (36.0-46.0); MCH 34.3 PG (29.0-34.0); MEAN PLAT.VOLUME 10.1 uM^3 (9.5-12.4); PLATELET COUNT 106 K/uL (156-360); RBC DIS.WIDTH-CV 13.2 % (11.8-14.6); RED BLOOD COUNT 3.21 M/uL (3.80-5.20)
[2016-11-25 19:07] LABS: MCV 92.5 FL (83-99)
[2016-11-25 19:14] LABS: CHLORIDE 89 mEq/L (99-109)
[2016-11-25 19:16] LABS: GLUCOSE 321 mg/dL (70-99)
[2016-11-25 19:18] LABS: ANION GAP 14 MEQ/L (2-14); TOTAL BILIRUBIN 3.2 mg/dL (0.0-1.0)
[2016-11-25 19:20] LABS: ALKALINE PHOSPHATASE 121 IU/L (3-129); GFR ESTIMATE (CALCULATED) 55 mL/min/
[2016-11-25 19:21] LABS: UREA NITROGEN (BUN) 22 mg/dL (9-23)
[2016-11-25 19:49] LABS: SODIUM 113 mEq/L (136-147)
[2016-11-26] VITALS (8 sets, daily range): BP systolic 98–120; BP diastolic 57–61
[2016-11-26 06:09] LABS: HEMATOCRIT 28.7 % (36.0-46.0); MCH 33.4 PG (29.0-34.0); MCHC 35.5 G/DL (30.0-36.0); MCV 94.1 FL (83-99); PLATELET COUNT 89 K/uL (156-360); RBC DIS.WIDTH-CV 13.4 % (11.8-14.6); RBC DIS.WIDTH-SD 46.4 % (39-53); RED BLOOD COUNT 3.05 M/uL (3.80-5.20); WHITE BLOOD COUNT 7.6 K/uL (4.1-10.2)
[2016-11-26 06:43] LABS: POINT-OF-CARE METER ID UU14208753
[2016-11-26 07:07] LABS: ANION GAP 6 MEQ/L (2-14); CHLORIDE 94 MEQ/L (99-109); GFR ESTIMATE (CALCULATED) > 59 mL/min/; GLUCOSE 318 mg/dL (70-99); POTASSIUM 4.9 MEQ/L (3.7-5.4); SAMPLE HEMOLYSIS CHECK 0; SAMPLE ICTERIC CHECK 0; SAMPLE LIPEMIA CHECK 0; UREA NITROGEN (BUN) 23 mg/dL (9-23)
[2016-11-26 07:17] LABS: SODIUM 119 MEQ/L (136-147)
[2016-11-26 11:30] LABS: POINT-OF-CARE METER ID UU14117124
[2016-11-26 13:23] LABS: ANION GAP 4 MEQ/L (2-14); CHLORIDE 97 MEQ/L (99-109); GFR ESTIMATE (CALCULATED) > 59 mL/min/; GLUCOSE 218 mg/dL (70-99); POTASSIUM 5.3 MEQ/L (3.7-5.4); SAMPLE HEMOLYSIS CHECK 0; SAMPLE ICTERIC CHECK 0; SAMPLE LIPEMIA CHECK 0; SODIUM 120 MEQ/L (136-147); UREA NITROGEN (BUN) 22 mg/dL (9-23)
[2016-11-26 16:32] LABS: POINT-OF-CARE METER ID UU14117124
[2016-11-26 16:44] LABS: ANION GAP 3 MEQ/L (2-14); CHLORIDE 96 MEQ/L (99-109); GFR ESTIMATE (CALCULATED) > 59 mL/min/; GLUCOSE 215 mg/dL (70-99); POTASSIUM 5.4 MEQ/L (3.7-5.4); SAMPLE HEMOLYSIS CHECK 0; SAMPLE ICTERIC CHECK 0; SAMPLE LIPEMIA CHECK 0; UREA NITROGEN (BUN) 24 mg/dL (9-23)
[2016-11-26 16:46] LABS: SODIUM 118 MEQ/L (136-147)
[2016-11-27 04:05] VITALS: BP 110/62
[2016-11-27 06:33] LABS: POINT-OF-CARE METER ID UU14188577
[2016-11-27 07:18] LABS: BASOPHIL COUNT 0.1 K/uL (0-0.1); EOSINOPHIL (%) 4.6 % (0-5); EOSINOPHIL COUNT 0.4 K/uL (0-0.3); HEMATOCRIT 29.3 % (36.0-46.0); IMMATURE GRANULOCYTE (%) 0.3 % (0.0-0.7); LYMPHOCYTE COUNT 0.9 K/uL (1.0-2.8); MCH 35.3 PG (29.0-34.0); MCHC 37.5 G/DL (30.0-36.0); MCV 93.9 FL (83-99); MEAN PLAT.VOLUME 10.4 uM^3 (9.5-12.4); MONOCYTE (%) 17.1 % (3-12); MONOCYTE COUNT 1.6 K/uL (0-0.8); NEUTROPHIL (%) 66.7 % (45-76); PLATELET COUNT 110 K/uL (156-360); RBC DIS.WIDTH-CV 13.7 % (11.8-14.6); RBC DIS.WIDTH-SD 47.1 % (39-53); RED BLOOD COUNT 3.12 M/uL (3.80-5.20)
[2016-11-27 07:35] VITALS: BP 101/55
[2016-11-27 07:40] LABS: ANION GAP 2 MEQ/L (2-14); CHLORIDE 97 MEQ/L (99-109); GFR ESTIMATE (CALCULATED) > 59 mL/min/; GLUCOSE 173 mg/dL (70-99); POTASSIUM 5.6 MEQ/L (3.7-5.4); SAMPLE HEMOLYSIS CHECK 0; SAMPLE ICTERIC CHECK 1; SAMPLE LIPEMIA CHECK 0; UREA NITROGEN (BUN) 23 mg/dL (9-23)
[2016-11-27 07:41] LABS: SODIUM 118 MEQ/L (136-147)
[2016-11-27 11:54] LABS: POINT-OF-CARE METER ID UU14188577
[2016-11-27 16:32] LABS: ANION GAP 3 MEQ/L (2-14); CHLORIDE 96 MEQ/L (99-109); GFR ESTIMATE (CALCULATED) > 59 mL/min/; GLUCOSE 265 mg/dL (70-99); POTASSIUM 4.8 MEQ/L (3.7-5.4); SAMPLE HEMOLYSIS CHECK 0; SAMPLE ICTERIC CHECK 0; SAMPLE LIPEMIA CHECK 0; UREA NITROGEN (BUN) 25 mg/dL (9-23)
[2016-11-27 16:37] LABS: SODIUM 117 MEQ/L (136-147)
[2016-11-27 16:44] VITALS: BP 106/59
[2016-11-27 17:06] LABS: POINT-OF-CARE METER ID UU14188577
[2016-11-27 19:34] VITALS: BP 123/64
[2016-11-28 00:02] VITALS: BP 125/61
[2016-11-28 04:15] VITALS: BP 115/65
[2016-11-28 07:28] LABS: ANION GAP 15 MEQ/L (2-14); CHLORIDE 93 MEQ/L (99-109); GFR ESTIMATE (CALCULATED) 55 mL/min/; GLUCOSE 302 mg/dL (70-99); SAMPLE HEMOLYSIS CHECK 0; SAMPLE ICTERIC CHECK 1; SAMPLE LIPEMIA CHECK 0; SODIUM 120 MEQ/L (136-147); UREA NITROGEN (BUN) 25 mg/dL (9-23)
[2016-11-28 07:29] LABS: POTASSIUM 5.9 MEQ/L (3.7-5.4)
[2016-11-28 08:34] VITALS: BP 119/68
[2016-11-28 10:00] VITALS: BP 118/71
[2016-11-28 10:01] LABS: INTER. NORMALIZED RATIO 1.4; PROTHROMBIN TIME 15.6 SEC (10.2-12.9)
[2016-11-28 10:36] LABS: BASE EXCESS -14.5 mEq/L (-3 to +3); BICARBONATE 10.8 mEq/L (22-26); CARBOXY HGB 2.1 % (0-5); METHEMOGLOBIN 1.1 % (0-1.5); PCO2 24 mm Hg (35-45)
[2016-11-28 10:37] LABS: COMMENTS - BLOOD GASES C+; DEVICE RA; SITE LB; TOTAL RESP RATE 10 resp/min; pH 7.26 (7.35-7.45)
[2016-11-28 11:05] LABS: ADD MIUA? NO; BILIRUBIN NEGATIVE; BLOOD NEGATIVE; COLOR AMBER ((YELLOW)); GLUCOSE (STRIP) >=500; KETONES NEGATIVE; LEUKOCYTES NEGATIVE; NITRITE NEGATIVE; PROTEIN (STRIP) NEGATIVE; SPECIFIC GRAVITY 1.018 (1.000-1.030); UROBILINOGEN 0.2 MG/DL (0.2-1.0)
[2016-11-28 12:10] VITALS: BP 116/74
[2016-11-28 12:25] LABS: ALKALINE PHOSPHATASE 104 IU/L (3-129); DIRECT BILIRUBIN 1.7 mg/dL (0.0-0.3)
[2016-11-28 12:26] LABS: TOTAL BILIRUBIN 4.4 MG/DL (0.0-1.0)
[2016-11-28 13:19] LABS: ANION GAP 14 MEQ/L (2-14); CHLORIDE 95 MEQ/L (99-109); GFR ESTIMATE (CALCULATED) 55 mL/min/; GLUCOSE 399 mg/dL (70-99); POTASSIUM 4.6 MEQ/L (3.7-5.4); SAMPLE HEMOLYSIS CHECK 0; SAMPLE ICTERIC CHECK 1; SAMPLE LIPEMIA CHECK 0; SODIUM 121 MEQ/L (136-147); UREA NITROGEN (BUN) 28 mg/dL (9-23)
[2016-11-28 14:15] VITALS: BP 109/68
== END 2016-11-28 17:14 | disposition short-term general hospital (02) | DRG 641 ==
LOC: EME 17:53 → EDOF 22:31 → 3EAST 22:31 → ENRESERV 22:38 → 3EAST 23:51 → ENRESERV 11-28 11:18 → 4EAST 11-28 13:57
PROVIDERS: Hospitalist; Internal Medicine; Internal Medicine Nephrology
DX: E87.1 Hypo-osmolality and hyponatremia (principal); R18.8 Other ascites; J98.11 Atelectasis; F05 Delirium due to known physiological condition; E87.2 Acidosis; D69.6 Thrombocytopenia, unspecified; E11.65 Type 2 diabetes mellitus with hyperglycemia; E87.5 Hyperkalemia; E87.70 Fluid overload, unspecified; I10 Essential (primary) hypertension; B18.2 Chronic viral hepatitis C; I25.10 Atherosclerotic heart disease of native coronary artery without angina pectoris; J45.909 Unspecified asthma, uncomplicated; F41.9 Anxiety disorder, unspecified; Z76.82 Awaiting organ transplant status; K74.60 Unspecified cirrhosis of liver; K72.90 Hepatic failure, unspecified without coma; Z85.05 Personal history of malignant neoplasm of liver; R33.9 Retention of urine, unspecified; Z85.21 Personal history of malignant neoplasm of larynx; Z87.442 Personal history of urinary calculi; Z79.82 Long term (current) use of aspirin; Z87.891 Personal history of nicotine dependence; Z95.5 Presence of coronary angioplasty implant and graft; Z79.4 Long term (current) use of insulin; I25.2 Old myocardial infarction; Z80.1 Family history of malignant neoplasm of trachea, bronchus and lung; Z82.49 Family history of ischemic heart disease and other diseases of the circulatory system
CPT/HCPCS: 36415; 36600; 71010; 80048; 80048 91; 80053; 80076; 81003; 82105 90; 82140; 82803; 82948; 83605; 83935; 84300; 85025; 85027; 85610; 87086; 94799; 99202; 99281; 99285; J1644; J1815; J2405; J7030; J7040; P9047

== ENCOUNTER → 2016-11-25 | Outpatient (CLI) | payer OTHER | END | disposition home or self-care (01) | LOC: RAD 13:06 | PROC: 0W9G3ZZ Drainage of Peritoneal Cavity, Percutaneous Approach (ICD-10-PCS; principal; 2016-11-25) | DX: K74.69 Other cirrhosis of liver (principal) | CPT/HCPCS: 49083; P9047 ==

== ENCOUNTER → 2016-12-09 | Outpatient (CLI) | payer OTHER | END | disposition home or self-care (01) | LOC: RAD 13:00 | PROC: 0W9G3ZZ Drainage of Peritoneal Cavity, Percutaneous Approach (ICD-10-PCS; principal; 2016-12-09) | DX: K74.69 Other cirrhosis of liver (principal) | CPT/HCPCS: 49083; P9047 ==

== ENCOUNTER → 2016-12-13 | Outpatient (CLI) | payer OTHER | END | disposition home or self-care (01) | LOC: RAD 08:15 | PROC: 0W9G3ZZ Drainage of Peritoneal Cavity, Percutaneous Approach (ICD-10-PCS; principal; 2016-12-13) | DX: K74.69 Other cirrhosis of liver (principal) | CPT/HCPCS: 49083; P9047 ==

== ENCOUNTER → 2016-12-17 | Outpatient (CLI) | payer OTHER | END | disposition home or self-care (01) | LOC: RAD 11-27 13:30 | PROC: 0W9G3ZZ Drainage of Peritoneal Cavity, Percutaneous Approach (ICD-10-PCS; principal; 2016-12-17) | DX: K74.69 Other cirrhosis of liver (principal); R18.8 Other ascites | CPT/HCPCS: 49083; P9047 ==